=== PATIENT | male | born 1960 | race Two or more races ===

== ENCOUNTER 2020-02-14 13:23 | Emergency (ER) | payer SELFPAY ==
[~2020-02-14] VITALS: Ht 162.6 cm; Wt 57.0 kg
[2020-02-14 13:32] VITALS: BP 172/94
[2020-02-14] MEDS ORDERED: TLXL5 GT (13:35)
[2020-02-14] MEDS ORDERED: CARI250T PO (13:35)
== END 2020-02-14 14:37 | disposition left against medical advice (07) ==
LOC: ER 13:23
DX: R03.0 Elevated blood-pressure reading, without diagnosis of hypertension (principal); Z53.21 Procedure and treatment not carried out due to patient leaving prior to being seen by health care provider

== ENCOUNTER 2025-03-11 16:03 | Emergency (ER) | payer MEDICAID ==
[~2025-03-11] VITALS: Ht 167.6 cm; Wt 70.0 kg
[~2025-03-11 16:03] MED LIST: CARI250T PO; TLXL5 GT
[2025-03-11 16:15] VITALS: O2SAT 97
[2025-03-11 19:55] VITALS: BP 169/100; PULSE 54; RESP 16; TEMP 36.9; O2SAT 97
== END 2025-03-11 20:00 | disposition home or self-care (01) ==
LOC: ER 16:03
DX: R51.9 Headache, unspecified (principal); M25.562 Pain in left knee; M79.632 Pain in left forearm; E78.00 Pure hypercholesterolemia, unspecified; I10 Essential (primary) hypertension; Z88.5 Allergy status to narcotic agent; Z98.890 Other specified postprocedural states; Z79.899 Other long term (current) drug therapy
CPT/HCPCS: 70486; 73090; 73560; 99284